=== PATIENT | male | born 1995 | race Caucasian/White ===

== ENCOUNTER 2018-04-11 15:33 | Emergency (ER) | payer OTHER ==
[~2018-04-11] VITALS: Ht 177.8 cm; Wt 130.6 kg
[~2018-04-11 15:33] MED LIST: AMOX875 PO; CEPH500 PO; HYDACE5 PO; MONT10T PO; NEOPOLHCSU OT; Norco 5-325 Ta1 EACH PO; PSEU120ER PO
[2018-04-11] MEDS ORDERED: Ciprodex Otic7.5 ML LEFTEAR (17:09)
[2018-04-11] MEDS ORDERED: Amoxicillin875 MG PO (17:09)
== END 2018-04-11 17:36 | disposition home or self-care (01) ==
LOC: ER 15:33
DX: H66.42 Suppurative otitis media, unspecified, left ear (principal)
CPT/HCPCS: 99282

== ENCOUNTER 2018-06-28 23:16 | Emergency (ER) | payer OTHER ==
[~2018-06-28] VITALS: Ht 177.8 cm; Wt 136.1 kg
[~2018-06-28 23:16] MED LIST changes: +Amoxicillin875 MG PO; +Ciprodex Otic7.5 ML LEFTEAR
== END 2018-06-29 01:02 | disposition home or self-care (01) ==
LOC: ER 23:16
DX: F10.129 Alcohol abuse with intoxication, unspecified (principal)
CPT/HCPCS: 99284

== ENCOUNTER 2018-08-29 21:59 | Emergency (ER) | payer OTHER ==
[~2018-08-29] VITALS: Ht 177.8 cm; Wt 131.5 kg
== END 2018-08-30 01:09 | disposition left against medical advice (07) ==
LOC: ER 21:59
DX: Z53.21 Procedure and treatment not carried out due to patient leaving prior to being seen by health care provider (principal)

== ENCOUNTER 2019-05-29 22:35 | Emergency (ER) | payer OTHER ==
[~2019-05-29] VITALS: Ht 180.3 cm; Wt 136.1 kg
[2019-05-29] MEDS ORDERED: Augmentin 875-1 EACH PO (23:20)
== END 2019-05-29 23:37 | disposition home or self-care (01) ==
LOC: ER 22:35
DX: H65.92 Unspecified nonsuppurative otitis media, left ear (principal)
CPT/HCPCS: 99283

== ENCOUNTER 2019-07-03 21:57 | Emergency (ER) | payer OTHER ==
[~2019-07-03] VITALS: Ht 180.3 cm; Wt 129.7 kg
[~2019-07-03 21:57] MED LIST changes: +Augmentin 875-1 EACH PO
== END 2019-07-03 23:37 | disposition home or self-care (01) ==
LOC: ER 21:57
DX: S61.211A Laceration without foreign body of left index finger without damage to nail, initial encounter (principal); W26.0XXA Contact with knife, initial encounter
CPT/HCPCS: 12001; 99282-25

== ENCOUNTER 2019-07-16 00:16 | Emergency (ER) | payer OTHER ==
[~2019-07-16] VITALS: Ht 177.8 cm; Wt 99.8 kg
== END 2019-07-16 02:10 | disposition home or self-care (01) ==
LOC: ER 00:16
DX: S61.211D Laceration without foreign body of left index finger without damage to nail, subsequent encounter (principal)

== ENCOUNTER 2020-04-14 13:03 | Emergency (ER) | payer OTHER ==
[~2020-04-14] VITALS: Ht 177.8 cm; Wt 129.3 kg
[2020-04-14] MEDS ORDERED: AMOCLA875 PO (15:39)
[2020-04-14] MEDS ORDERED: IBUP400 PO (15:39)
== END 2020-04-14 15:53 | disposition home or self-care (01) ==
LOC: ER 13:03
DX: S02.602A Fracture of unspecified part of body of left mandible, initial encounter for closed fracture (principal); W51.XXXA Accidental striking against or bumped into by another person, initial encounter
CPT/HCPCS: 70486; 99283-25